=== PATIENT | male | born 1995 | race Caucasian/White ===

== ENCOUNTER 2018-04-30 17:07 | Emergency (ER) | payer OTHER ==
[~2018-04-30] VITALS: Ht 182.9 cm; Wt 107.7 kg
[2018-04-30 18:10] LABS: BASO # 0.1 10^3/uL (0.0-0.2); BASO % 0.3 % (0.0-1.0); EOS % 0.1 % (0.0-3.0); HEMATOCRIT 42.7 % (42.0-52.0); HEMOGLOBIN 15.1 g/dl (13.5-17.5); LYMPH # 1.5 10^3/uL (1.5-6.5); MEAN CORPUSCULAR HEMOGLOBIN 30.7 pg (27.0-33.0); MEAN CORPUSCULAR HGB CONC 35.4 g/dl (32.0-36.5); MEAN CORPUSCULAR VOLUME 86.8 fl (80.0-96.0); MONO # 1.4 10^3/uL (0.0-0.8); MONO % 8.3 % (0.0-5.0); NEUTROPHILS # 13.7 10^3/uL (1.8-7.7); NEUTROPHILS % 81.9 % (36.0-66.0); PLATELET COUNT, AUTOMATED 160 10^3/uL (150-450); RED BLOOD COUNT 4.92 10^6/uL (4.30-6.10); WHITE BLOOD COUNT 16.7 10^3/uL (4.0-10.0)
[2018-04-30] MEDS ORDERED: ISOVUE-370 76% 100ML VIAL (Q9967) As Ordered ONE (18:36)
[2018-04-30 18:41] LABS: BLOOD UREA NITROGEN 8 MG/DL (7-18); CARBON DIOXIDE LEVEL 27 MEQ/L (21-32); CHLORIDE LEVEL 97 MEQ/L (98-107); GLOMERULAR FILTRATION RATE > 60.0 (>60); GLUCOSE, FASTING 83 MG/DL (70-100); POTASSIUM SERUM 3.6 MEQ/L (3.5-5.1); SODIUM LEVEL 134 MEQ/L (136-145)
[2018-04-30 18:44] LABS: ERYTHROCYTE SEDIMENTATION RATE 16 mm/hr (0-15)
--- NOTE | 2018-04-30 19:27 | REPVR ---
EXAM: CT Neck With Contrast EXAM DATE/TIME: 04/30/2018 6:47 PM CLINICAL HISTORY: 22 years old, male; Signs and symptoms; Abscess, tonsil; Additional info: ? Peritonsillar abscess TECHNIQUE: Axial computed tomography images of the neck with intravenous contrast. All CT scans at this facility use at least one of these dose optimization techniques: automated exposure control; mA and/or kV adjustment per patient size (includes targeted exams where dose is matched to clinical indication); or iterative reconstruction. Coronal and sagittal reformatted images were created and reviewed. COMPARISON: No relevant prior studies available. FINDINGS: No focal subcutaneous soft tissue swelling. Parapharyngeal and posterior nasopharynx soft tissue planes are symmetric. During the tonsils appear enlarged and inflamed bilaterally, more so on the right. There may be a peritonsillar phlegmon or developing an organized 1 cm abscess on axial image 23 of the mandible angle level, slightly displacing the airway to the left. Prominent reactive bilateral cervical chain lymph nodes. The largest of these is right jugulodigastric measuring 18 mm short axis. No suppurative nodes. Vascular structures of the neck enhance normally. Muscles of mastication and strap muscles of the neck appear normal. Parotid and minor salivary glands are unremarkable. Floor of the mouth and tongue base soft tissues appear normal. Laryngeal structures appear normal. Thyroid gland shows no abnormality. Lung apices are normal. Bony structures are unremarkable for age. IMPRESSION: Bilateral tonsillitis, more so on the right, with peritonsillar phlegmon and probable developing but incompletely organized 1 cm right peritonsillar abscess. Associated reactive lymphadenopathy. Only minor airway narrowing Electronically signed by: Darío Casillas On 04/30/2018 19:27:11 PM
[2018-04-30] MEDS ORDERED: methylPREDNISolone INJ 125 MG/2 ML VIAL (J2930) IV ONE (19:45)
[2018-04-30] MEDS ORDERED: CLINDAMYCIN 600 MG in APPROPRIATE DILUENT 1 EA IV ONE (19:45)
[2018-04-30] MEDS ORDERED: ACETAMINOPHEN 325 MG TAB PO ONE (20:00)
[2018-04-30] MEDS ORDERED: IBUPROFEN 800 MG TAB PO ONE (21:30)
[2018-04-30] MEDS ORDERED: CLEO300C2 PO (21:43)
[2018-04-30] MEDS ORDERED: PRED20TA PO (21:43)
[2018-04-30 21:54] VITALS: BP 134/71
== END 2018-04-30 21:56 | disposition home or self-care (01) ==
LOC: M ED 17:07
DX: J36 Peritonsillar abscess (principal); Z88.0 Allergy status to penicillin
CPT/HCPCS: 36415; 70491; 80048; 85025; 85652; 86140; 87880; 96374; 96375; 99284; J2930; Q9967

== ENCOUNTER 2018-05-01 17:53 | Emergency (ER) | payer OTHER ==
[~2018-05-01] VITALS: Ht 182.9 cm; Wt 107.7 kg
[~2018-05-01 17:53] MED LIST: CLEO300C2 PO; PRED20TA PO
[2018-05-01] MEDS ORDERED: CLINDAMYCIN 600 MG in APPROPRIATE DILUENT 1 EA IV ONE (18:15)
[2018-05-01 18:52] VITALS: BP 131/59
== END 2018-05-01 18:55 | disposition home or self-care (01) ==
LOC: M ED 17:53
DX: J36 Peritonsillar abscess (principal); J03.90 Acute tonsillitis, unspecified

== ENCOUNTER 2019-04-26 18:46 | Emergency (ER) | payer OTHER ==
[~2019-04-26] VITALS: Ht 182.9 cm; Wt 113.3 kg
[2019-04-26] MEDS ORDERED: ONDANSETRON 4MG/2ML VIAL (J2405) As Ordered ONE (19:35)
[2019-04-26] MEDS ORDERED: MORPHINE 2 MG/ML 1ML VIAL (J2270) As Ordered ONE (19:36)
[2019-04-26] MEDS: MORPHINE 4 MG/ML 1ML VIAL/SYRINGE (J2270) IV PRN ×2 (19:42→20:11)
[2019-04-26] MEDS ORDERED: ONDANSETRON 4MG/2ML VIAL (J2405) IV ONE (19:45)
[2019-04-26 20:11] VITALS: BP 155/86
[2019-04-26] MEDS ORDERED: IBUP80TA PO (20:11)
[2019-04-26] MEDS ORDERED: PERC5TAB12 PO (20:11)
[2019-04-26] MEDS ORDERED: OXYCODONE/APAP 5MG/325MG(BULK FOR ED) 1 TABLET PO ONE (20:15)
--- NOTE | 2019-04-27 08:34 | REP ---
Left wrist series: Four views. History: A pain after a fall snowboarding. Findings: There is a comminuted fracture of the distal radial metaphysis with impaction, apex ventral angulation, and approximately 6 mm of dorsal displacement. There is an associated ulnar styloid chip fracture. There is associated soft-tissue swelling. No carpal fractures seen. Metacarpals appear intact. Impression: Distal radial and ulnar fractures as above. Electronically Signed by Tunde Snow MD 04/27/2019 08:25 A
--- NOTE | 2019-04-30 14:13 | ED PDOC ---
Post-Departure Follow-Up [facility] faxed formal report of left wrist film for fu Chuyita Anderson MD Apr 30, 2019 14:13
== END 2019-04-26 20:23 | disposition home or self-care (01) ==
LOC: M ED 18:46
DX: S52.592A Other fractures of lower end of left radius, initial encounter for closed fracture (principal); V00.321A Fall from snow-skis, initial encounter; Y92.89 Other specified places as the place of occurrence of the external cause; Z88.0 Allergy status to penicillin
CPT/HCPCS: 73110; 96374; 96375; 99284; J2270; J2405